=== PATIENT | male | born 1970 ===

== ENCOUNTER 2020-04-01 17:00 | Emergency (ER) | payer BC ==
[2020-04-01] MEDS ORDERED: AMLODIPINE 5 MG TAB ONE (17:30)
[2020-04-01] MEDS ORDERED: AMOX/K CLAV 875 MG TAB ONE (17:36)
[2020-04-01] MEDS ORDERED: TETANUS & DIPHTHERIA TOX,ADULT 0.5 ML VIAL ONE (17:37)
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
[2020-04-01 18:51] VITALS: TEMP 97.8
[2020-04-01 18:53] VITALS: O2SAT 96
[2020-04-01 18:55] VITALS: BP 173/115
== END 2020-04-01 18:36 | disposition home or self-care (01) ==
LOC: ER 17:00
DX: S40.871A Other superficial bite of right upper arm, initial encounter (principal); Y04.1XXA Assault by human bite, initial encounter; Y93.9 Activity, unspecified; Y92.149 Unspecified place in prison as the place of occurrence of the external cause; Z23 Encounter for immunization; I10 Essential (primary) hypertension
CPT/HCPCS: 90471; 90714; 99283